=== PATIENT | male | born 1985 | race Caucasian/White ===

== ENCOUNTER 2017-11-19 05:16 | Day surgery (SDC) | payer OTHER ==
[~2017-11-19] VITALS: Ht 170.2 cm; Wt 77.1 kg
[2017-11-19] VITALS (14 sets, daily range): BP systolic 104–132; BP diastolic 61–88
[2017-11-19] MEDS ORDERED: VITAMIN D1000 UNI1 ORAL (05:53)
[2017-11-19] MEDS ORDERED: VITAMIN B122500 MCG PO (05:53)
--- NOTE | 2017-11-19 07:06 | Anethesia Preoperative Eval ---
Anesthesia Pre-op PMH/ROS General Date of Evaluation: Nov 19, 2017 Time of Evaluation: 07:03 Anesthesiologist: Rafaela Hale CRNA ASA Score: ASA 2 Mallampati Score Class I : Soft palate, uvula, fauces, pillars visible Class II: Soft palate, uvula, fauces visible Class III: Soft palate, base of uvula visible Class IV: Only hard plate visible Mallampati Classification: Class I Surgeon: Go Diagnosis: Microscopic hematuria Surgical Procedure: Cysoscopy, bladder wash out Anesthesia History: none Social History: smoking, alcohol use Family History: no anesthesia problems Allergies: Coded Allergies: LATEX (Verified Allergy, Mild, 11/19/17) SKIN IRRITATION PENICILLINS (Verified Allergy, Unknown, 11/19/17) cannot remember reaction Medications: see eMAR Past Medical History Cardiovascular: Reports: other - Hyperlipidemia Gastrointestinal/Genitourinary: Reports: GERD - not on meds, diet controlled, other - hematuria PMH Narrative: as above PSxH Narrative: pt not sure, possible surgery as child, unknown type Anesthesia Pre-op Phys. Exam Physician Exam Last Vital Signs Date Time Temp Pulse Resp B/P (MAP) Pulse Ox O2 Delivery O2 Flow Rate FiO2 11/19/17 05:53 98.1 67 20 121/72 (88) 98 98.1 11/19/17 05:49 Room Air Constitutional: NAD Neurologic: CN 2-12 intact Cardiovascular: RRR Respiratory: CTA Gastrointestinal: S/NT/ND Airway Exam Mallampati Score: Class I MO: full Neck: no issues TMD: > 3 FB ROM: full Teeth: intact Dentures: no upper, no lower Anesthesia Pre-op A/P Risk Assessment & Plan Assessment: ASA 2, ok to proceed with GA Plan: GA LMA Status Change Before Surgery: Rafaela Garvey CRNA Nov 19, 2017 07:06
[2017-11-19] MEDS ORDERED: Succinylcholine 20mg/ml 10ml vial ONE (07:10)
[2017-11-19] MEDS ORDERED: Propofol 200mg/20ml IV ONE (07:11)
[2017-11-19] MEDS ORDERED: Lidocaine 1% MPF 10mg/ml 5ml ONE ×2 (07:11→07:30)
[2017-11-19] MEDS ORDERED: fentaNYL 100 mcg/2 mL IV ONE (07:11)
[2017-11-19] MEDS ORDERED: Midazolam 2mg/2ml Inj ONE (07:12)
[2017-11-19] MEDS ORDERED: LR 1000ml ONE (07:30)
[2017-11-19] MEDS ORDERED: NS Irrig 4000ml IRRIG ONE (07:30)
[2017-11-19] MEDS ORDERED: Sterile Water Irrig 1000ml IRRIG ONE (07:30)
--- NOTE | 2017-11-19 07:43 | Pre-Procedure Note/Attestation ---
Pre-Procedure Note/Attestation Complete Prior to Procedure Planned Procedure: not applicable Procedure Narrative: cystoscopy, bladder wash Indications for Procedure Pre-Operative Diagnosis: hematuria Attestation I attest that I discussed the nature of the procedure; its benefits; risks and complications; and alternatives (and the risks and benefits of such alternatives ), prior to the procedure, with the patient (or the patient's legal development representative). I attest that, if there was a reasonable possibility of needing a blood transfusion, the patient (or the patient's legal development representative) was given the [facility] standardized written summary, pursuant to the [place] Blood Safety Act ([place] Health and Safety Code # 1645, as amended). I attest that I re-evaluated the patient just prior to the surgery and that there has been no change in the patient's H&P, except as documented below: RYLIE BARBA Nov 19, 2017 07:43
[2017-11-19] MEDS ORDERED: cefOXitin 1gm Inj ONE (07:55)
--- NOTE | 2017-11-19 08:16 | Operative Note - PDOC ---
Operative Note Operative Note Date of Operation/Procedure: Nov 19, 2017 Chief Complaint: hematuria Pre-op Diagnosis: hematuria Procedure: cystoscopy and bladder lavage Post-op Diagnosis: hematuria Post-op Diagnosis: same as pre-op Surgeon: rylie barba Anesthesiologist: beckie brito Anesthesia: general Specimen: yes Complications: none Condition: stable Estimated Blood Loss: none Drains: none Implant(s) used?: No Indications for Procedure hematuria Description of Procedure cystoscopy bladder lavage RYLIE BARBA Nov 19, 2017 08:16
--- NOTE | 2017-11-19 08:21 | Immediate Post-Op Evaluation ---
Immediate Post-Op Evalulation Immediate Post-Op Evalulation Procedure: Cystoscopy with bladder wash Date of Evaluation: Nov 19, 2017 Time of Evaluation: 08:11 IV Fluids: LR 600 ml Blood Products: none Estimated Blood Loss: none Urinary Output: in field Blood Pressure Systolic: 132 Blood Pressure Diastolic: 88 Pulse Rate: 93 Respiratory Rate: 24 O2 Sat by Pulse Oximetry: 100 Temperature (Fahrenheit): 97.5 Pain Score (1-10): 2 Nausea: No Vomiting: No Complications none Patient Status: awake, reacts, patent, extubated Hydration Status: adequate Drug: Cefoxitin 1 gm IV Given Within 1 Hr of Incision: Yes Time Given: 07:53 Rafaela Hale CRNA Nov 19, 2017 08:21
--- NOTE | 2017-11-19 12:04 | 48 Hour Post Anesthesia Eval ---
Post Anesthesia Evaluation Procedure: Cystoscopy with bladder wash Date of Evaluation: Nov 19, 2017 Time of Evaluation: 10:00 Blood Pressure Systolic: 104 0: 61 Pulse Rate: 79 Respiratory Rate: 16 Temperature (Fahrenheit): 98.0 O2 Sat by Pulse Oximetry: 98 Airway: patent Nausea: No Vomiting: No Pain Intensity: 0 Hydration Status: adequate Mental Status/LOC: patient returned to baseline Follow-up Care/Observations: none Post-Anesthesia Complications: none Follow-up care needed: ready to discharge Rafaela Hale CRNA Nov 19, 2017 12:04
--- NOTE | 2017-11-19 23:00 | Operative Note - Dictated ---
DATE OF OPERATION: 11/19/2017 PREOPERATIVE DIAGNOSIS: Hematuria. POSTOPERATIVE DIAGNOSIS: Hematuria. OPERATIVE PROCEDURE: Cystoscopy with bladder lavage. SURGEON: Frank Stiles M.D. DESCRIPTION OF PROCEDURE: After informed consent, the patient was brought to the operating room and placed in supine position. He received IV sedation and preoperative antibiotics without difficulty. He was subsequently placed in low lithotomy position and was prepped and draped in sterile fashion. After successful timeout, cystoscopy was performed. The anterior urethra was opened. The prostatic urethra was small and short in length. No significant obstructive changes were noted. The bladder neck was normal. No median lobe is noted. The bladder mucosa was then evaluated. The ureteral orifices were identified and were in normal position. Normal efflux was noted. The bladder mucosa was inspected and meticulous. No suspicious lesions were noted. The bladder was lavaged and sent for cytologic evaluation. The bladder was drained. Endoscopic apparatus was removed. The procedure was well tolerated. Frank Stiles MD DR: WINSTON JOB#: [id number] CC:
== END 2017-11-19 10:05 | disposition home or self-care (01) ==
LOC: SUR 05:16
DX: R31.29 Other microscopic hematuria (principal); E78.5 Hyperlipidemia, unspecified; K21.9 Gastro-esophageal reflux disease without esophagitis; Z88.0 Allergy status to penicillin; Z91.040 Latex allergy status
CPT/HCPCS: 51700; J0330; J0694; J2250; J2405; J2704; J3010; 94003; 94150